=== PATIENT | male | born 1955 | race African-American/Black ===

== ENCOUNTER 2021-10-15 13:11 | Emergency (ER) | payer MEDICARE, OTHER ==
[~2021-10-15] VITALS: Ht 154.9 cm; Wt 85.3 kg
[2021-10-15 15:20] LABS: BASOPHIL 0.3 % (0-2); EOSINOPHIL 0.6 % (0-7); HCT 30.2 % (42.0-52.0); HGB 9.5 g/dl (13.2-18.0); LYMPHOCYTE 13.8 % (15-48); MCH 27.5 pg (25.0-31.0); MCHC 31.5 g/dL (32.0-36.0); MCV 87.3 fL (78.0-100.0); MONOCYTE 4.8 % (0-12); NEUTROPHIL 79.9 % (41-80); NRBC 0; PLT 188 K/uL (150-400); RBC 3.46 M/uL (4.70-6.00); RDW 15.8 % (11.5-14.0); WBC 6.9 K/uL (4.0-10.5)
[2021-10-15 15:32] LABS: LACTIC ACID 0.6 mmol/L (0.4-1.9)
[2021-10-15 15:54] LABS: ALBUMIN 1.1 g/dL (3.4-5.0); BILIRUBIN - TOTAL 0.4 mg/dL (0.2-1.0); BUN/CREAT RATIO (CALC) 21.2 RATIO; CREATININE 0.99 mg/dL (0.67-1.17); GLOBULIN (CALCULATION) 5.2 g/dL; TOTAL PROTEIN 6.3 g/dL (6.4-8.2)
[2021-10-15 17:16] LABS: INR 0.99 (0.9-1.2); PROTHROMBIN TIME 12.5 SECONDS (11.8-13.4); PTT 37.4 SECONDS (24.4-34.7)
== END 2021-10-15 19:20 | disposition other institution (70) ==
LOC: FER 13:11
PROVIDERS: Emergency Medicine
DX: I21.4 Non-ST elevation (NSTEMI) myocardial infarction (principal); I10 Essential (primary) hypertension; E11.9 Type 2 diabetes mellitus without complications; Z20.822 Contact with and (suspected) exposure to COVID-19; Z86.16 Personal history of COVID-19; Z88.2 Allergy status to sulfonamides; Z88.6 Allergy status to analgesic agent; Z91.041 Radiographic dye allergy status; Z91.013 Allergy to seafood
CPT/HCPCS: 36415; 36600; 71045; 80053; 82553; 82803; 83605; 84145; 84443; 84484; 85025; 85610; 85730; 87040; 93005; J1644; J7030; U0002